=== PATIENT | female | born 1990 | race Caucasian/White ===

== ENCOUNTER 2025-03-26 00:51 | Emergency (ER) | payer SELFPAY ==
[~2025-03-26] VITALS: Ht 170.2 cm; Wt 95.5 kg
[2025-03-26] MEDS: IBUPROFEN 800 MG TABLET PO ONE (01:29)
[2025-03-26] MEDS ORDERED: IBUP-1493 PO (02:32)
[2025-03-26] MEDS ORDERED: HYDR-4062 PO (02:32)
[2025-03-26] MEDS ORDERED: AMOX500C2 PO (02:32)
[2025-03-26 03:08] VITALS: BP 134/89; PULSE 88; RESP 17; TEMP 97.3; O2SAT 98
== END 2025-03-26 05:58 | disposition home or self-care (01) ==
LOC: EMS 00:51
DX: K08.89 Other specified disorders of teeth and supporting structures (principal); Z98.890 Other specified postprocedural states
CPT/HCPCS: 99283